=== PATIENT | female | born 1990 ===

== ENCOUNTER 2024-12-20 09:22 | Outpatient (AMB) | payer OTHER, SELFPAY ==
--- NOTE | 2024-12-20 09:25 | A.OFFPC_ITS ---
Vital Signs 12/20/24 09:28 Height 5 ft 3.5 in Weight 146 lb 4 oz BMI 25.5 BP 120/82 Blood Pressure Location Lt brachial Position Sitting Respiration 16 Pulse 80 Pulse Source Pulse Oximeter Temp 97.1 F Temp Source Temporal Artery Scan Intake Visit Reasons: Routine, reestablish care Wound Specialist Required: No Accompanied by: Self / Same As Patient Allergies No Known Allergies Allergy (Verified 12/20/24 09:29) Medication List - Last Reconciled 12/20/24 by Hayde Betancourt MD albuterol sulfate 90 mcg/actuation 2 puffs inhalation QID PRN budesonide-formoterol 80-4.5 mcg/actuation (Symbicort) 2 inhalations inhalation BID PRN fremanezumab-vfrm (Ajovy) mg subcut magnesium glycinate 500 mg PO .QD omeprazole 20 mg PO QAM rosuvastatin 20 mg PO DAILY Saccharomyces boulardii (Daily Probiotic (S. boulardii)) 250 mg PO BID semaglutide (Ozempic) 1 mg subcut QWEEK topiramate XR 100 mg PO DAILY Tobacco use date assessed: 12/20/24 Dental Screening Dental Screen Date: 12/20/24 Did you have a dental visit in the last 12 months?: Yes Did you have a dental problem in the last 6 months where you did not have access to dental care?: No Was dental information given to patient?: Patient has dentist HPI HPI Comments History of Present Illness Details The patient is a 34-year-old female presenting [facility] and for management of chronic conditions. Obesity/Diabetes mellitus type 2: The patient was stable on Ozempic 1 mg weekly for weight management but has been off the medication for about a month due to running out of refills. Despite this, her weight has remained steady, with her last weight being 137 lbs compared to today's weight of 145 lbs. Chronic Migraine: The patient is followed by neurology for migraines and recently saw Dr. Flaquito Otto. Her previous medication, Aimovig, had plateaued and was no longer effective, and she experienced frequent migraine episodes for about a month. Her neurologist increased her Topiramate XR to 100 mg and switched her from Aimovig to Ajovy. Asthma: The patient has a history of asthma and uses albuterol and Symbicort on an as- needed basis. She reports that she does not use them often, mainly during allergy season or when she has a respiratory infection, which she notes tend to linger. Gastroesophageal Reflux Disease (GERD): For reflux and heartburn, the patient takes omeprazole 20 mg once a day. Hyperlipidemia: The patient is on rosuvastatin 20 mg for hyperlipidemia, which was adjusted in the past following transaminitis. Polycystic Ovary Syndrome (PCOS): The patient reports a history of PCOS, which she considers an ongoing issue. She is looking for a specialist specifically for PCOS management, as she feels some of the general gynecologists she has reached out to have not focused on the issue. Her previous reproductive endocrinology clinic is no longer accepting patients. Her last Pap smear was approximately two years ago. Anxiety and Depression: The patient reports recent struggles with mental health, noting her therapist recently left the practice and she finds the prospect of starting with a new provider daunting. Her TANIA-7 score was 7 and her PHQ-9 was 8. Her former t herapist had suggested she may benefit from medication, and the patient is now possibly interested in seeing a psychiatrist. 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 - Stress: She reports being happier in h er new role but still experiences stress due to being short-staffed. - Mental Health: The patient recently to ok time off work for a mental break and reports feeling very tired. Diagnostic Results: - TANIA-7 score: 7 (mild anxiety). - PHQ-9 score: 8 (mild depression). Review of Systems - General: Reports feeling very tired. - Constitutional: Denies nausea. - Neurological: Reports a month-long per iod of increased migraines recently. - Respiratory: Denies recent significant respiratory issues, but reports symptoms can linger with allergies or infections. - Psychiatric: Reports symptoms of anxie ty and depression; TANIA-7 score of 7 and PHQ-9 score of 8. Physical Exam - HEENT: Ears are clear with no cerumen. - Throat is without erythema. - Cardiovascular: Normal heart sounds ar e heard with a soft murmur. - Pulmonary: Lungs are clear to ausculta tion bilaterally, with no wheezing noted. - Abdomen: Soft, non-tender, with normal bowel sounds. - Extremities: No edema noted in the low er extremities. - Pulses: Peripheral pulses are palpable . Assessment and Plan 1. Obesity/Diabetes mellitus type 2 - The patient has been off Ozempic for a month but has maintained a stable weight. - She will be restarted on Ozempic 1 mg weekly. 2. Chronic migraine - Her condition is managed by her neurol ogist. - She was recently switched from Aimovig to Ajovy and had her Topiramate XR increased to 100 mg due to a flare-up of symptoms. - She will continue her current regimen as prescribed by neurology. 3. Asthma - Her asthma is stable, with symptoms oc curring mainly with illness or allergies. - She will continue to use her inhalers (albuterol and symbicort) as needed. 4. GERD and Hyperlipidemia - Both conditions are well-controlled on her current medications, omeprazole 20 mg and rosuvastatin 20 mg, respectively. - Refills for both will be provided. 5. Polycystic ovary syndrome (PCOS) - The patient is seeking a specialist fo r her PCOS. - [facility] senior network security engineer since she has specific tiers because of her insurance. 6. Anxiety and Depression - The patient's screening scores (TANIA-7: 7, PHQ-9: 8) indicate mild symptoms, and her therapist has left her practice. - She is agreeable to a psychiatric cons ultation for medication management. - A referral will be sent to the care na vigator to find an in-network psychiatrist. 7. Health Maintenance - A full panel of labs, including A1c, c holesterol, urine, liver, and kidney function tests, will be ordered. - A follow-up appointment for a physical is scheduled for six months. Discussion Notes We reviewed her chronic conditions, including her recent challenges with migraines, and I confirmed her new regimen from her neurologist. I sent refills for her medications, including restarting Ozempic. Patient Instructions - Your prescriptions for Ozempic, omepra zole, and rosuvastatin have been sent to your pharmacy. - You will need to fast (no food) for 10 hours before your blood draw, but make sure to drink plenty of water. - Our animal care attendant will reach out to y ou to help find a psychiatrist who is in your insurance network. [facility] Medical History (Updated 12/20/24 @ 16:51 by Hayde Betancourt MD) Migraines PCOS (polycystic ovarian syndrome) Hyperlipidemia, unspecified Impaired fasting glucose Diabetes mellitus Family History (Updated 12/20/24 @ 10:04 by Hayde Betancourt MD) Other Coronary artery disease Diabetes mellitus ESRD (end stage renal disease) Hypertension Social History Housing: House Patient Tobacco Use Status: Never used Tobacco e-Cigarette/Vaping Use: Never Used service: No Current occupational status: employed Current occupation: [employer] Questionnaire PHQ-9 Over the last 2 weeks, how often have you been bothered by any of the following problems? 1. Little interest or pleasure in doing things: several days 2. Feeling down, depressed, or hopeless: several days 3. Trouble falling or staying asleep, or sleeping too much: more than half the days 4. Feeling tired or having little energy: more than half the days 5. Poor appetite or overeating: not at all 6. Feeling bad about yourself - or that you are a failure or have let yourself or your family down: not at all 7. Trouble concentrating on things, such as reading the newspaper or watching television: more than half the days 8. Moving or speaking so slowly that other people could have noticed. Or the opposite - being so fidgety or restless that you have been moving around a lot more than usual: not at all 9. Thoughts that you would be better off or of hurting yourself in some way: not at all Total score: 8 Depression Screening Interpretation: Positive Depression Screening Done: Yes 94172 - PHQ-9 Billing: Yes Source: Developed by Drs. Yousif De Santiago, Tabitha Smith, Sohail Corbin and colleagues, with an educational sumi from [employer]. Thrive Questionnaire Date Thrive assessed: 12/20/24 I am a: Patient What is your living situation today?: I have a steady place to live Within the past 12 months, did the food you bought not last and you didn't have the money to get more?: Never true Within the past 12 months, did you worry whether your food would run out before you got money to buy more?: Never true Do you have trouble paying for medicines?: No Do you have trouble getting transportation to medical appointments?: No Do you have trouble paying your heating and electricity bill?: No Do you have trouble taking care of your child, family member or friend?: No Do you have trouble with day-to-day activities such as bathing, preparing meals, shopping, managing finances, etc.?: No Are you currently unemployed and looking for a job?: No Are you interested in more education?: Yes THRIVE Score: 0 AUDIT C Alcohol Use Questionnaire (AUDIT-C) 1. How often do you have a drink containing alcohol?: Monthly or less 2. How many drinks containing alcohol do you have on a typical day when you are drinking?: 1 or 2 3. How often do you have six or more drinks on one occasion?: Never Total Score: 1 TANIA-7 AMB Questionnaire TANIA-7 Date TANIA - 7 assessed: 12/20/24 Feeling nervous, anxious, or on edge: 1 = Several days Not being able to stop or control worryin = Several days Worrying too much about different things: 2 = More than half the days Trouble relaxin = More than half the days Being so restless that it is hard to sit still: 0 = Not at all Becoming easily annoyed or irritable: 1 = Several days Feeling afraid as if something awful might happen: 0 = Not at all Total TANIA-7 score (0-4 normal; 5-9 mild; 10-14 moderate; 15-21 severe): 7 Source: Developed by Drs. Yousif De Santiago, Tabitha Smith, Sohail Corbin and colleagues, with an educational sumi from [employer]. Physical exam (Primary Care) Vital Signs: Last Vital Signs Temp 97.1 F 12/20/24 09:28 Pulse 80 12/20/24 09:28 Resp 16 12/20/24 09:28 BP 120/82 12/20/24 09:28 BMI result Body Mass Index 25.5 Tobacco/Smoking Status: Tobacco use Status Tobacco use date assessed 12/20/24 12/20/24 09:36 Patient Tobacco Use Status Never used Tobacco 12/20/24 09:36 e-Cigarette/Vaping Use Never Used 12/20/24 09:36 PHQ-9: PHQ-9 Score PHQ-9: Total score 8 12/20/24 10:23 Depression Screening Interpretation: Positive Thrive Assessment: Date of Thrive Assessment Date Thrive assessed 12/20/24 12/20/24 10:25 Coding Level of Care Code Est Pt Level 4 (60134) Complex EM visit Add On G2211 Diagnoses PCOS (polycystic ovarian syndrome) E28.2 Hyperlipidemia, unspecified hyperlipidemia type E78.5 Hyperlipidemia type: unspecified Migraine without status migrainosus, not intractable, unspecified migraine type G43.909 Migraine type: unspecified Status migrainosus presence: without status migrainosus Intractability: not intractable Type 2 diabetes mellitus without complication, without long-term current use of insulin E11.9 Diabetes mellitus type: type 2 Diabetes mellitus detention insulin use: without intermediate card tender use Diabetes mellitus complication status: without complication Additional Codes PHQ-9 - 03161 - PHQ-9 Billing: Yes ([id number]) Assessment & Plan Assessment & Plan (1) PCOS (polycystic ovarian syndrome): Code(s): E28.2 - Polycystic ovarian syndrome Category: Medical (2) Hyperlipidemia, unspecified: Code(s): E78.5 - Hyperlipidemia, unspecified Category: Medical Qualifiers: Hyperlipidemia type: unspecified Qualified Code(s): E78.5 - Hyperlipidemia, unspecified (3) Migraines: Code(s): G43.909 - Migraine, unspecified, not intractable, without status migrainosus Category: Medical Qualifiers: Migraine type: unspecified Status migrainosus presence: without status migrainosus Intractability: not intractable Qualified Code(s): G43.909 - Migraine, unspecified, not intractable, without status migrainosus (4) Diabetes mellitus: Code(s): E11.9 - Type 2 diabetes mellitus without complications Category: Medical Qualifiers: Diabetes mellitus type: type 2 Diabetes mellitus intermediate card tender insulin use: without detention use Diabetes mellitus complication status: without complication Qualified Code(s): E11.9 - Type 2 diabetes mellitus without complications Plan - Restart Ozempic 1 mg weekly; prescription sent to pharmacy. - Send refills for omeprazole 20 mg daily and rosuvastatin 20 mg daily. - Send refill for epinephrine auto-injector. - Send message to animal care attendant to assist the patient in finding an in-network psychiatrist for medication management. - Follow up in 6 months for physical Orders: Orders Microalbumin, Random (w Creat) Today E11.9 - Type 2 diabetes mellitus without complications, E28.2 - Polycystic ovarian syndrome, E78.5 - Hyperlipidemia, unspecified, R73.01 - Impaired fasting glucose Comprehensive Met. Panel Today E11.9 - Type 2 diabetes mellitus without complications, E28.2 - Polycystic ovarian syndrome, E78.5 - Hyperlipidemia, unspecified, R73.01 - Impaired fasting glucose Complete Blood Count Auto Diff Today E11.9 - Type 2 diabetes mellitus without complications, E28.2 - Polycystic ovarian syndrome, E78.5 - Hyperlipidemia, unspecified, R73.01 - Impaired fasting glucose Lipid Panel Today E11.9 - Type 2 diabetes mellitus without complications, E28.2 - Polycystic ovarian syndrome, E78.5 - Hyperlipidemia, unspecified, R73.01 - Impaired fasting glucose TSH reflex Free T4 Today E11.9 - Type 2 diabetes mellitus without complications, E28.2 - Polycystic ovarian syndrome, E78.5 - Hyperlipidemia, unspecified, R73.01 - Impaired fasting glucose Hemoglobin A1c Today E11.9 - Type 2 diabetes mellitus without complications, E28.2 - Polycystic ovarian syndrome, E78.5 - Hyperlipidemia, unspecified, R73.01 - Impaired fasting glucose Medications: New semaglutide (Ozempic) 1 mg (0.75 mL) subcut QWEEK 3 mL 11RF rosuvastatin 20 mg PO DAILY 90 tabs 3RF omeprazole 20 mg PO QAM 90 caps 3RF budesonide-formoterol 80-4.5 mcg/actuation (Symbicort) 2 inhalations inhalation BID PRN 10.2 grams 4RF shortness of breath epinephrine (EpiPen) for 2 doses 0.3 mg (0.3 mL) IM Q15M PRN 2 ea 11RF anaphylaxis 30 days albuterol sulfate 90 mcg/actuation 2 puffs inhalation QID PRN 8.5 grams 8RF wheezing
[2024-12-20 09:28] VITALS: BP 120/82; PULSE 80; RESP 16; TEMP 36.2; BMI 25.5
--- OUTSIDE RECORDS SUMMARY | 2024-12-20 10:08 | XMS_ITS | Clinical Summary ---
Author Organization [facility] Address [address] [place] [id number] Care Team Providers Care Nib Finisher Name Role Phone Pcp, No Primary Care Provider Unavailabl e Allergies No known active allergies Medications albuterol (PROVENTIL HFA; VENTOLIN HFA) 108 (90 Base) MCG/ACT inhaler INHALE 2 PUFFS BY MOUTH 4 TIMES A DAY NEEDED FOR WHEEZING 4 Active fluticasone (FloNASE) 50 mcg/spray nasal spray 1 spray 2 times a day. 4 Active Emgality 120 MG/ML injection 4 Active Ozempic, 1 MG/DOSE, 4 MG/3ML prefilled pen injection 4 Active topiramate (TOPAMAX) 50 MG tablet Take 50 mg by mouth nightly. 4 Active rosuvastatin (CRESTOR) 20 MG tablet Take 20 mg by mouth. 4 Active fluticasone (FloNASE) 50 mcg/spray nasal sprayIndications: Non-recurrent acute suppurative otitis media of both ears without spontaneous rupture of tympanic membranes 1 spray into each nostril daily. 1 each 4 Active pseudoephedrine (SUDAFED) 30 MG tabletIndications :Non-recurrent acute suppurative otitis media of both ears without spontaneous rupture of tympanic membranes Take 1 tablet (30 mg total) by mouth every 4 (four) hours as needed for congestion. 30 tablet 4 Active lidocaine (XYLOCAINE) 2 % solutionIndicatio ns:Non-recurrent acute suppurative otitis media of both ears without spontaneous rupture of tympanic membranes Take 5 mL by mouth 4 (four) times a day as needed for mild pain. 100 mL 4 Active mometasone (ELOCON) 0.1 % ointmentIndicatio ns:Dermatitis Apply topically daily. 45 g 1 4 Active flurbiprofen (ANSAID) 100 MG tabletIndications :Neck pain Take 1 tablet (100 mg total) by mouth 2 (two) times a day. 50 tablet 3 4 Active OMEprazole (PriLOSEC) 20 MG capsuleIndication s:Chronic pharyngitis,Dysph onia Take 1 capsule (20 mg total) by mouth every morning before breakfast. 40 capsule 5 4 Active predniSONE (DELTASONE) 20 MG tabletIndications :Mild intermittent reactive airway disease with acute exacerbation Two tabs daily for 4 days, then one tab daily for 3 days With food. 11 tablet 5 Active Active Problems No known active problems Social History Tobacco Use Types Packs/Day Years Used Date Smoking Tobacco: Never Assessed Comments Unknown Sex and Gender Information Value Date Recorded Sex Assigned at Female 12/19/2023 1:21 PM EST Legal Sex Female 1:19 PM EST Gender Identity Female 12/19/2023 1:21 PM EST Sexual Orientation Choose not to disclose 2023 1:21 PM EST Last Filed Vital Signs Vital Sign Reading Time Taken Comments Blood Pressure 104/73 05/03/2024 1:28 PM EDT Pulse 112 05/03/2024 1:47 PM EDT Temperature 36.8 C (98.3 F) 05/03/2024 1:28 PM EDT Respiratory Rate 13 05/03/2024 1:28 PM EDT Oxygen Saturation 99% 05/03/2024 1:47 PM EDT Inhaled Oxygen Concentration - - Weight 62.6 kg (138 lb) 05/03/2024 1:28 PM EDT Height 157.5 cm (5' 2 ) 05/03/2024 1:28 PM EDT Body Mass Index 25.24 05/03/2024 1:28 PM EDT Plan of Treatment Health Maintenance Due Date Last Done Comments Hepatitis C Virus Screening 1988 HIV Screening 2001 DTaP/Tdap/Td Vaccines (1 - Tdap) 10/05/2007 Hepatitis B Vaccines (1 of 3 - 19+ 3-dose series) 10/05/2007 Pap Smear (Ages 21-65) 2009 Influenza Vaccine 09/06/2024 12/05/2023, , 11/05/2021, Additional history exists COVID-19 Vaccine (2024- season) 2024 11/08/2022, 11/14/2020, 02/15/2020, Additional history exists HPV Vaccines (No Doses Required) Completed Pneumococcal Vaccine: Pediatric (0-5 Years) and At-Risk Patients (6 to 49 Years) Aged Out No longer eligible based on patient's age to complete this topic Insurance [facility] [place] [address] [place] [address] [facility] Care Teams Nib Finisher Relationship Specialty Start Date End Date Pcp, No PCP - General General Medicine 12/19/23
--- OUTSIDE RECORDS SUMMARY | 2024-12-20 10:08 | XMS_ITS | Encounter Summary ---
Author Organization [facility] Address [address] [place] [address] Care Team Providers Care Hat Maker Name Role Phone Pcp, No Primary Care Provider Unavailabl e Encounter Details Date Type Department Care Team (Late st Contact Info) Description 05/03/2024 Scanned Document [address] [place] [id number] Provider, Generic Social History Tobacco Use Types Packs/Day Years Used Date Smoking Tobacco: Never Assessed Comments Unknown Sex and Gender Information Value Date Recorded Sex Assigned at Female 12/19/2023 1:21 PM EST Legal Sex Female 1:19 PM EST Gender Identity Female 12/19/2023 1:21 PM EST Sexual Orientation Choose not to disclose 2023 1:21 PM EST documented as of this encounter Plan of Treatment Not on file documented as of this encounter Visit Diagnoses Not on filedocumented in this encounter Care Teams Hat Maker Relationship Specialty Start Date End Date Pcp, No PCP - General General Medicine 12/19/23 documented as of this encounter
== END 2024-12-20 10:16 | disposition home or self-care (01) ==
LOC: HO.HMCHD 09:22
PROVIDERS: PCP Internal Medicine; Visit Provider Internal Medicine
DX: E28.2 Polycystic ovarian syndrome (principal); E78.5 Hyperlipidemia, unspecified; G43.909 Migraine, unspecified, not intractable, without status migrainosus; E11.9 Type 2 diabetes mellitus without complications

== ENCOUNTER → 2024-12-20 09:22 | Outpatient (BNVA) | payer OTHER, SELFPAY | PROVIDERS: PCP Internal Medicine; Visit Provider Internal Medicine | DX: Z76.89 Persons encountering health services in other specified circumstances (principal); E28.2 Polycystic ovarian syndrome; E78.5 Hyperlipidemia, unspecified; G43.709 Chronic migraine without aura, not intractable, without status migrainosus; E11.9 Type 2 diabetes mellitus without complications; J45.909 Unspecified asthma, uncomplicated; K21.9 Gastro-esophageal reflux disease without esophagitis; F41.8 Other specified anxiety disorders; Z13.31 Encounter for screening for depression; Z13.39 Encounter for screening examination for other mental health and behavioral disorders | CPT/HCPCS: 96127 ==